=== PATIENT | female | born 1990 | race Caucasian/White ===

== ENCOUNTER 2016-04-24 15:36 | Emergency (ER) | payer SELFPAY ==
[~2016-04-24] VITALS: Ht 152.4 cm; Wt 86.2 kg
[2016-04-24 15:40] VITALS: BP 132/73
--- NOTE | 2016-04-24 18:28 | NUR ---
Pt taken to bed 8.
--- NOTE | 2016-04-24 18:30 | NUR ---
Patient being evaluated by physician at bedside.
--- NOTE | 2016-04-24 18:34 | NUR ---
25/F presents to ED for evaluation of right leg pain x1 day. Patient c/o hx of sciatica. Patient states she was taking Tramadol for pain and ran out of medication. Patient is AOX4, ambulatory with steady gait. VSS.
[2016-04-24 18:41] VITALS: BP 129/75
--- NOTE | 2016-04-24 18:42 | NUR ---
Chart checked and completed. The patient's care was reviewed and supervised by Samm Phillips RN.
== END 2016-04-24 18:42 | disposition home or self-care (01) ==
LOC: MED 15:39
DX: M54.41 Lumbago with sciatica, right side (principal); K21.9 Gastro-esophageal reflux disease without esophagitis; Z88.6 Allergy status to analgesic agent
CPT/HCPCS: 99283; J7030

== ENCOUNTER 2016-05-16 20:18 | Emergency (ER) | payer MEDICAID ==
[~2016-05-16] VITALS: Ht 165.1 cm; Wt 86.2 kg
--- NOTE | 2016-05-16 20:34 | NUR ---
Dr. Flynn evaluating patient
[2016-05-16 20:35] VITALS: BP 143/79
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
[2016-05-16 20:48] VITALS: BP 140/81
--- NOTE | 2016-05-16 20:48 | NUR ---
Patient discharged with v/s stable. Written and verbal after care instructions given and explained. Patient alert, oriented and verbalized understanding of instructions. Ambulatory with steady gait. All questions addressed prior to discharge. ID band removed. Patient advised to follow up with PMD. Rx of AUGMENTIN 875MG AND TRAMADOL 50MG given. Patient educated on indication of medication including possible reaction and side effects. Opportunity to ask questions provided and answered.
== END 2016-05-16 20:48 | disposition home or self-care (01) ==
LOC: MED 20:18
DX: S60.572A Other superficial bite of hand of left hand, initial encounter (principal); S60.571A Other superficial bite of hand of right hand, initial encounter; K21.9 Gastro-esophageal reflux disease without esophagitis; R03.0 Elevated blood-pressure reading, without diagnosis of hypertension; Z88.6 Allergy status to analgesic agent; W54.0XXA Bitten by dog, initial encounter; Y93.89 Activity, other specified; Y92.89 Other specified places as the place of occurrence of the external cause; Y99.8 Other external cause status
CPT/HCPCS: 99283; J7030

== ENCOUNTER 2016-06-06 20:36 | Emergency (ER) | payer MEDICAID ==
[~2016-06-06] VITALS: Ht 162.6 cm; Wt 83.9 kg
[2016-06-06 20:53] VITALS: BP 133/88
--- NOTE | 2016-06-06 21:14 | NUR ---
PT TAKEN TO BED 3
--- NOTE | 2016-06-06 21:15 | NUR ---
25 Y/O F W/C/O RT LOWER ABD PAIN, AND LEGS STARTED YESTERDAY, N/V NOTED. NO S/S OF DISTRESS NOTED AT THIS TIME. ER AWARED.
[2016-06-06] MEDS ORDERED: KETOROLAC 30 MG/ML VIAL IVP ONE (21:35)
[2016-06-06] MEDS ORDERED: cefTRIAXone 1,000 MG VIAL ONE (21:39)
--- NOTE | 2016-06-06 21:43 | NUR ---
Dr. Soto evaluating patient at bedside.
[2016-06-06] MEDS ORDERED: MORPHINE SULFATE 10 MG/ML SYR IM ONE (22:05)
[2016-06-06 22:52] VITALS: BP 129/68
--- NOTE | 2016-06-06 22:52 | NUR ---
Patient discharged BY DR FALL with v/s stable. Written and verbal after care instructions given and explained. Patient alert, oriented and verbalized understanding of instructions. Ambulatory with steady gait. All questions addressed prior to discharge. ID band removed. Patient advised to follow up with PMD OR RETURN TO ER IF CONDITION WORSENS. Rx of TRAMADOL HYDROCHLORIDE given. Patient educated on indication of medication including possible reaction and side effects. Opportunity to ask questions provided and answered.
== END 2016-06-06 22:52 | disposition home or self-care (01) ==
LOC: MED 20:36
DX: M54.41 Lumbago with sciatica, right side (principal); K21.9 Gastro-esophageal reflux disease without esophagitis; Z90.49 Acquired absence of other specified parts of digestive tract; Z88.8 Allergy status to other drugs, medicaments and biological substances
CPT/HCPCS: 96372; 99283; J0696; J1885; J2270; J7060

== ENCOUNTER 2016-06-16 01:14 | Emergency (ER) | payer MEDICAID | END 2016-06-16 04:50 | disposition left against medical advice (07) | LOC: MED 01:14 | DX: R10.9 Unspecified abdominal pain (principal); Z53.21 Procedure and treatment not carried out due to patient leaving prior to being seen by health care provider ==

== ENCOUNTER 2016-08-25 20:23 | Emergency (ER) | payer SELFPAY ==
[~2016-08-25] VITALS: Ht 162.6 cm; Wt 90.7 kg
[2016-08-25 20:49] VITALS: BP 122/72
--- NOTE | 2016-08-25 23:10 | NUR ---
Brought to [facility].
[2016-08-25 23:40] VITALS: BP 117/68
--- NOTE | 2016-08-25 23:40 | NUR ---
Patient discharged with v/s stable. Written and verbal after care instructions given and explained. Patient alert, oriented and verbalized understanding of instructions. Ambulatory with steady gait. All questions addressed prior to discharge. ID band removed. Patient advised to follow up with PMD. Rx of Ultram given. Patient educated on indication of medication including possible reaction and side effects. Opportunity to ask questions provided and answered.
== END 2016-08-25 23:40 | disposition home or self-care (01) ==
LOC: MED 20:23
DX: S29.012A Strain of muscle and tendon of back wall of thorax, initial encounter (principal); M54.31 Sciatica, right side; K21.9 Gastro-esophageal reflux disease without esophagitis; Z90.49 Acquired absence of other specified parts of digestive tract; Z88.8 Allergy status to other drugs, medicaments and biological substances; W01.0XXA Fall on same level from slipping, tripping and stumbling without subsequent striking against object, initial encounter; Y93.89 Activity, other specified; Y92.89 Other specified places as the place of occurrence of the external cause; Y99.8 Other external cause status
CPT/HCPCS: 99283